=== PATIENT | female | born 1955 | race Caucasian/White ===

== ENCOUNTER 2024-07-27 16:29 | Emergency (ER) | payer MEDICAID ==
[~2024-07-27] VITALS: Ht 162.6 cm; Wt 86.2 kg
[2024-07-27] MEDS ORDERED: FUROSEMIDE 20 MG/2 ML VIAL ONE (16:49)
[2024-07-27] MEDS ORDERED: NITROGLYCERIN OINT 1 GM PACKET TP ONE (16:49)
[2024-07-27] MEDS ORDERED: DILTIAZEM HCL 25 MG IV ONE ×2 (16:50→21:42)
[2024-07-27 16:57] LABS: BASOPHILS % (AUTO) 0.1 % (0.0-2.0); DIFFERENTIAL COMMENT 1; HEMATOCRIT 35.5 % (31.2-41.9); HEMOGLOBIN 12.1 g/dL (10.9-14.3); LYMPHOCYTES # (AUTO) 1.4 K/uL (0.8-4.8); LYMPHOCYTES % (AUTO) 14.1 % (20.5-51.5); MEAN CORPUSCULAR HEMOGLOBIN 30.6 uug (24.7-32.8); MEAN CORPUSCULAR HGB CONC 34 g/dL (32.3-35.6); MEAN CORPUSCULAR VOLUME 89.6 fL (75.5-95.3); MONOCYTES # (AUTO) 0.7 K/uL (0.1-1.30); MONOCYTES % (AUTO) 6.8 % (0.0-11.0); NEUTROPHILS # (AUTO) 7.9 K/uL (1.8-8.9); PLATELET COUNT (AUTO) 322 K/uL (179-408); RED BLOOD CELL COUNT(AUTO) 3.97 MIL/uL (3.63-4.92); RED CELL DISTRIBUTION WIDTH 14.4 % (12.3-17.7)
[2024-07-27] MEDS: NITROGLYCERIN OINT 1 GM PACKET TP ONE (16:59)
[2024-07-27] MEDS: FUROSEMIDE 20 MG/2 ML VIAL IV ONE (16:59)
[2024-07-27] MEDS: DILTIAZEM HCL 25 MG IV IV ONE ×3 (16:59→21:45)
[2024-07-27 17:04] LABS: CALCIUM 9.8 mg/dL (8.5-10.1); CARBON DIOXIDE 27 mmol/L (21-32); CHLORIDE 98 mmol/L (98-107); CREATININE 1.1 mg/dL (0.6-1.3); GLUCOSE 144 mg/dL (74-106); POTASSIUM 3.7 mmol/L (3.5-5.1); SODIUM SERUM 133 mmol/L (136-145); UREA NITROGEN, BLOOD 10 mg/dL (7-18)
[2024-07-27 17:17] LABS: ALANINE AMINOTRANSFERASE 28 U/L (14-59); ALBUMIN 3.2 g/dL (3.4-5.0); ALKALINE PHOSPHATASE 92 U/L (50-136); ASPARTATE AMINOTRANSFERASE 17 U/L (15-37); BILIRUBIN,DIRECT 0.2 mg/dL (0.0-0.2); BILIRUBIN,TOTAL 0.6 mg/dL (0.2-1.0); NT-PRO BNP 3134 pg/mL (0-125); TOTAL PROTEIN, SERUM 7.4 g/dL (6.4-8.2)
[2024-07-27] MEDS ORDERED: DILTIAZEM HCL 50 MG IV ONE (17:58)
[2024-07-27] MEDS ORDERED: IOHEXOL 350 100 ML INFUS..BTL ONE (18:33)
[2024-07-27] MEDS ORDERED: SWABABLE VALVE TRANSFER SET EA MC ONE (18:33)
[2024-07-27] MEDS ORDERED: IV NORMAL SALINE 250 ML IV ONE (18:33)
[2024-07-27] MEDS: ENOXAPARIN SODIUM 80 MG/0.8 ML DISP.SYRIN SQ SCH (19:20)
[2024-07-27] MEDS: DILTIAZEM HCL IV 125 MG in IV NORMAL SALINE 100 ML IV PRN (19:22)
[2024-07-27] MEDS ORDERED: ENOXAPARIN SODIUM 80 MG/0.8 ML DISP.SYRIN SQ ONE (19:24)
[2024-07-27 20:29] LABS: MAGNESIUM 1.7 mg/dL (1.8-2.4)
[2024-07-27 20:30] LABS: C-REACTIVE PROTEIN 4.65 mg/dL (0.00-0.30)
[2024-07-27 20:35] LABS: *BILIRUBIN,URIN NEGATIVE (NEGATIVE); *BLOOD, URINE NEGATIVE (NEGATIVE); *CLARITY,URINE CLEAR (CLEAR); *KETONES,URINE NEGATIVE (NEGATIVE); *PROTEIN,URINE NEGATIVE (NEGATIVE); *UROBILINOGEN,URINE 0.2 E.U./dl (NORMAL); LEUKOCYTE ESTERASE ,URINE TRACE (NEGATIVE); NITRITE, URINE NEGATIVE (NEGATIVE); PH,URINE 5.5 (5.0-8.0); UGLUCOSE NEGATIVE (NEGATIVE)
[2024-07-27 20:37] LABS: *COLOR,URINE STRAW (YELLOW)
[2024-07-27 20:43] LABS: BACTERIA,URINE MODERATE /HPF (NONE SEEN); RBC,URINE NONE SEEN /HPF (0-3); SQUAMOUS EPITHELIAL CELL,UR FEW /HPF (NONE SEEN); WBC,URINE 0-3 /HPF (0-3)
[2024-07-27 20:51] LABS: THYROID STIMULATING HORMONE 0.969 mIU/mL (0.358-3.740)
[2024-07-27] MEDS: AZITHROMYCIN IV 500 MG in IV DEXTROSE 5% 250 ML IV ONE (21:10)
[2024-07-27] MEDS ORDERED: AZITHROMYCIN 500MG/ D5W 250ML IVPB **ER PYXIS ONLY IV ONE ×2 (21:12→21:16)
[2024-07-27] MEDS ORDERED: CEFEPIME HCL 1 G VIAL ONE (21:12)
[2024-07-27 21:45] VITALS: BP 111/60
[2024-07-27] MEDS: CEFEPIME HCL 1 G in IV DEXTROSE 5% 50 ML IV ONE (22:15)
[2024-07-27] MEDS ORDERED: MAGNESIUM SULFATE/D5W 100 ML ONE (22:45)
[2024-07-27] MEDS: MAGNESIUM SULFATE/D5W 100 ML IV SCH (23:00)
[2024-07-28 00:40] VITALS: O2SAT 95
== END 2024-07-28 00:45 | disposition short-term general hospital (02) ==
LOC: ER 16:32
DX: I50.9 Heart failure, unspecified (principal); I48.91 Unspecified atrial fibrillation; I49.3 Ventricular premature depolarization; I70.0 Atherosclerosis of aorta; J90 Pleural effusion, not elsewhere classified; Z20.822 Contact with and (suspected) exposure to COVID-19
CPT/HCPCS: 99291; 96365; 96366; 71275; 71045; 96375 ×2; 87426; 80076; 80048; 81001; 83880; 83735; 84443; 85025; 84145; 85379; 85730; 86140; 84484; 36415; 93005; 87086; 96376; 96372; J0456 ×2; J0692; J3490 ×4; J1650; J1940; J3475; Q9967; A4606; A4663